=== PATIENT | female | born 1985 | race Hispanic/Latino ===

== ENCOUNTER 2022-08-13 12:17 | Emergency (ER) | payer OTHER, SELFPAY ==
[2022-08-13 12:24] VITALS: BP 123/63; PULSE 66; RESP 18; TEMP 36.6; O2SAT 100; BMI 31.8
--- NOTE | 2022-08-13 12:34 | DI.RAD.S_ITS ---
PROCEDURE: XR SHOULDER LT MIN 2V INDICATIONS: L shoulder pain TECHNIQUE: 3 views of the shoulder were acquired. COMPARISON: None. FINDINGS: Bones: No fractures or dislocations. No suspicious bony lesions. Visualized ribs appear intact. Soft tissues: No suspicious soft tissue calcifications. IMPRESSION: No fracture. No osseous lesion. If symptoms and/or clinical suspicion for pathology persists, further assessment with repeat radiographs (7-10 days) or advanced imaging (e.g. CT, MRI or bone scan) should be considered. Dictated by: Yamel Barrios MD, PhD on 08/13/2022 at 13:26 Approved by: Yamel Barrios MD, PhD on 08/13/2022 at 13:26
[2022-08-13 14:13] VITALS: BP 117/69; PULSE 66; O2SAT 99
--- NOTE | 2022-08-13 14:25 | ED.UPPEXIN ---
HPI - Extremity Injury (Upper) <Samara Jiménez PA-C - Last Filed: 08/13/22 14:40> General Chief Complaint: Extremity Injury, Upper Stated Complaint: Lt Shoulder Pain Time Seen by Provider: 08/13/22 12:39 Source: patient Mode of arrival: Ambulatory History of Present Illness HPI narrative: 36-year-old female with past medical history fibromyalgia presents to the ED with left-sided shoulder pain for 12 days. Patient denies any known trauma. Patient states that she has worsening pain when using her right arm and shoulder. The pain sometimes radiates down her left arm. Patient denies numbness, tingling, weakness. Patient's pain has been refractory to Celebrex which she takes for fibromyalgia. Patient denies chest pain, shortness of breath, nausea, vomiting. Related Data Allergies Allergy/AdvReac Type Severity Reaction Status Date / Time NSAIDS (Non-Steroidal AdvReac Unknown Verified 08/13/22 12:29 Anti-Inflamma Review of Systems <Samara Jiménez PA-C - Last Filed: 08/13/22 14:40> Review of Systems ROS Unobtainable: All systems reviewed & are unremarkable except as noted in HPI and below Constitutional Constitutional: Denies chills, Denies fatigue, Denies fever(s), Denies frequent falls, Denies lethargy and Denies weakness Eyes Eyes: Denies change in vision, Denies eye discharge, Denies irritation and Denies loss of vision ENT Ears, Nose, Mouth, and Throat: Denies change in voice, Denies dizziness, Denies neck pain, Denies sore throat and Denies throat swelling Cardiovascular Cardiovascular: Denies chest pain, Denies irregular heart rhythm, Denies lightheadedness, Denies palpitations, Denies dyspnea, Denies dyspnea on exertion and Denies orthopnea Respiratory Respiratory: Denies cough, Denies dyspnea, Denies dyspnea on exertion and Denies wheezing Gastrointestinal Gastrointestinal: Denies abdominal pain, Denies change in bowel habits, Denies diarrhea, Denies nausea and Denies vomiting Genitourinary Genitourinary: Denies hematuria, Denies flank pain, Denies urinary incontinence and Denies urinary urgency Musculoskeletal Musculoskeletal: Denies back pain, Denies muscle weakness, Denies neck pain, Denies numbness and Denies tingling Comments: Left shoulder pain Integumentary/Breasts Skin/Breast: Denies pruritus, Denies erythema, Denies rash and Denies wounds Neurologic Neurologic: Denies behavioral changes, Denies confusion, Denies dizziness, Denies frequent falls, Denies loss of vision, Denies numbness, Denies tingling and Denies weakness Psychiatric Psychiatric: Denies anxiety, Denies behavioral changes, Denies confusion, Denies depression, Denies homicidal ideation and Denies suicidal ideation Endocrine Endocrine: Denies fatigue, Denies flushing and Denies palpitations Hematologic/Lymphatic Hematologic/Lymphatic: Denies easy bruising Allergic/Immunologic Allergic/Immunologic: Denies urticaria, Denies throat swelling and Denies wheezing Patient History <Samara Jiménez PA-C - Last Filed: 08/13/22 14:40> Social History Smoking Status: Never smoker Smoking Status: Never smoker alcohol intake frequency: holidays/special occasions only Substance Use Type: does not use Exam <Samara Jiménez PA-C - Last Filed: 08/13/22 14:40> Narrative Exam Narrative: Const General:?cooperative, healthy appearing and comfortable [facility] Head:?normal to inspection Ears:?hearing grossly normal bilaterally Nose:?external nose normal Face and sinus:?normal facial exam and sinuses nontender Mouth:?oral mucosae normal Throat:?posterior oropharynx normal Eyes General:?appearance normal, both eyes and all related structures Neck Neck:?normal visual inspection and no lymphadenopathy noted Resp Effort & Inspection:?normal respiratory effort Auscultation:?clear to auscultation bilaterally Cardio Rate:?regular rate Rhythm:?regular rhythm Musculoskeletal There is some tenderness to palpation of anterior left shoulder. Skin is intact, no rashes. No deformitites. There is full range of motion. Strength and sensation is intact. Patient is neurovascularly intact. Neuro General:?patient alert, patient awake and patient oriented x3 Initial Vital Signs Initial Vital Signs: Vital Signs Temperature 97.9 F 08/13/22 12:24 Pulse Rate 66 08/13/22 12:24 Respiratory Rate 18 08/13/22 12:24 Blood Pressure 123/63 08/13/22 12:24 Pulse Oximetry 100 08/13/22 12:24 Oxygen Delivery Method Room Air 08/13/22 12:24 <Deyvi Enriquez DO - Last Filed: 08/14/22 07:52> Initial Vital Signs Initial Vital Signs: Vital Signs Temperature 97.9 F 08/13/22 12:24 Pulse Rate 66 08/13/22 12:24 Respiratory Rate 18 08/13/22 12:24 Blood Pressure 123/63 08/13/22 12:24 Pulse Oximetry 100 08/13/22 12:24 Oxygen Delivery Method Room Air 08/13/22 12:24 Course <Samara Jiménez PA-C - Last Filed: 08/13/22 14:40> Orders Ordered: ED Orders 08/13/22 12:34 XR shoulder LT min 2V Stat EKG-12 Lead Stat Vital Signs Vital signs: Vital Signs - 8 hr 08/13/22 12:24 08/13/22 14:13 Temperature 97.9 F Pulse Rate 66 66 Respiratory Rate 18 Blood Pressure 123/63 117/69 Pulse Oximetry 100 99 Oxygen Delivery Method Room Air Room Air <DO Sarah Montgomery Last Filed: 08/14/22 07:52> Orders Ordered: ED Orders 08/13/22 12:34 XR shoulder LT min 2V Stat EKG-12 Lead Stat Vital Signs Vital signs: Vital Signs - 8 hr 08/13/22 12:24 08/13/22 14:13 Temperature 97.9 F Pulse Rate 66 66 Respiratory Rate 18 Blood Pressure 123/63 117/69 Pulse Oximetry 100 99 Oxygen Delivery Method Room Air Room Air MDM - Extremity Injury (Upper) <ELSY Humphreys Last Filed: 08/13/22 14:40> MDM Narrative Medical decision making narrative: 36-year-old female with past medical history fibromyalgia presents to the ED with left-sided shoulder pain for 12 days. Concern for fracture/dislocation versus musculoskeletal sprain/strain. An EKG was also obtained which showed sinus bradycardia at 56, no acute ST-T changes, no axis deviation. Physical exam was reassuring for full range of motion. Patient's symptoms likely due to musculoskeletal sprain/strain versus rotator cuff versus biceps tendinitis. Patient agrees to follow-up with her PCP and physical therapy for further evaluation. Recommend heat, Tylenol in addition to Celebrex for the pain. ED return precautions were discussed with patient. Patient verbalized understanding. Discharge Plan Departure Patient Disposition: Home Clinical Impression: Left shoulder pain Instructions: DI for Shoulder Sprain Activity Restrictions/Additional Instructions: You were evaluated in the ED today for left-sided shoulder pain. Your x-ray did not show any fractures or dislocation. Your physical exam was reassuring for good range of motion. Your symptoms are likely due to a musculoskeletal sprain/strain. Please follow-up with your PCP as soon as possible as well as physical therapy. You may apply heat to the area of the injury. You may also take Tylenol in addition to the Celebrex that you already take for the fibromyalgia. Return to the ED if your symptoms worsen, you experience chest pain, shortness of breath. Referrals: Kayla Zaman PA-C [Primary Care Provider] - Stand Alone Forms: Patient Portal/API <Deyvi Enriquez DO - Last Filed: 08/14/22 07:52> Cosign ED Attending Cosbriannaature Attestation: I was immediately available in the department for consultation. This documentation has been reviewed and I agree with assessment and plan. Supervised by Deyvi Enriquez DO
== END 2022-08-13 14:38 | disposition home or self-care (01) ==
PROVIDERS: Emergency Provider Student in an Organized Health Care Education/Training Program; PCP Physician Assistant
DX: M25.512 Pain in left shoulder (principal); R07.9 Chest pain, unspecified
CPT/HCPCS: 73030; 93005; 99283; 99284

== ENCOUNTER 2022-09-10 13:13 | Emergency (ER) | payer OTHER, SELFPAY ==
[2022-09-10 13:23] VITALS: BP 152/90; PULSE 67; RESP 18; TEMP 37; O2SAT 99; BMI 31.8
[2022-09-10 14:38] LABS: Add Manual Diff / Slide Review NO; Basophils Absolute Auto 100 /uL (0-100); Eosinophils Absolute Auto 100 /uL (0-450); Eosinophils Percent Auto 1.2 % (2-4); Hematocrit 38.4 % (36-46); Hemoglobin 13.6 g/dL (12.0-16.0); Lymphocytes Absolute Auto 1700 /uL (1100-4500); Lymphocytes Percent Auto 25.9 % (25-40); Mean Corpuscular HGB Conc 35.3 % (30-36); Mean Corpuscular Hemoglobin 30.7 PG (26-34); Mean Corpuscular Volume 86.9 fL (80-100); Monocytes Absolute Auto 400 /uL (0-900); Neutrophils Absolute Auto 4400 /uL (1500-7000); Neutrophils Percent Auto 65.9 % (50-75); Platelet Count 282 X10^3/uL (150-400); Red Blood Cell Count 4.42 X10^6/uL (4.0-5.2); White Blood Cell Count 6.7 X10^3/uL (4.5-11.0)
[2022-09-10 14:47] LABS: Pregnancy Test Urine Negative (Negative)
[2022-09-10 14:49] LABS: BUN Creatinine Ratio 12.3 (6-22); Blood Urea Nitrogen 10 mg/dL (7-17); Calcium 9.1 mg/dL (8.4-10.2); Carbon Dioxide 28 mmol/L (22-32); Chloride 103 mmol/L (98-107); Estimated Glomerular Filt Rate > 60 mL/min (>60); Glucose 84 mg/dL (70-100); HEMOLYSIS < 15 (0-50); Potassium 3.8 mmol/L (3.4-5.1); Sodium 139 mmol/L (137-145)
[2022-09-10 15:02] LABS: Bacteria Urine Occasional (0-1); Culture Indicated Urine Cult Not Indicated; RBC Urine 10-30/HPF (0-5/HPF); Squamous Epithelial Cell Urine None Seen (0-5/HPF); WBC Urine 0-1/HPF (0-5/HPF)
[2022-09-10 16:26] VITALS: BP 141/70; PULSE 66; O2SAT 100
[2022-09-10 16:30] VITALS: BP 126/65; PULSE 60; O2SAT 100
[2022-09-10 17:00] VITALS: BP 129/79; PULSE 66; O2SAT 100
[2022-09-10 17:08] LABS: INR 1.2 (0.9-1.3); Prothrombin Time 14.1 SECONDS (10.1-12.7)
[2022-09-10 17:10] LABS: PTT Partial Thromboplastin Tim 28 SECONDS (26-36)
--- NOTE | 2022-09-10 18:28 | ED.FEMALEGU ---
HPI - Female Genitourinary <Samara Jiménez PA-C - Last Filed: 09/10/22 18:36> General Chief complaint: Vaginal Bleeding Stated complaint: sent by SILVIA Johnson heaving bleeding/lost weight RT le Time Seen by Provider: 09/10/22 16:28 Source: patient Mode of arrival: Ambulatory History of Present Illness HPI Narrative: 36-year-old female with past medical history fibromyalgia, endometriosis presents to the ED with 2 days of heavy menstrual bleeding. Patient states that her periods started yesterday, she has been changing tampons about every 1/2 hour to 1 hour. Patient states that she usually changes tampons about every 1-1-1/2 hours, endorses that she has normally heavier periods. Patient is not on any exogenous hormones. Patient denies abdominal cramping, endorses lower back pain along with the bleeding. Patient denies chest pain, shortness of breath, nausea, vomiting, dysuria, lightheadedness, dizziness, syncope. Related Data Previous Rx's Medication Instructions Recorded medroxyprogesterone 10 mg tablet See Rx Instructions .Route 09/10/22 .COMPLEX #42 tabs Allergies Allergy/AdvReac Type Severity Reaction Status Date / Time NSAIDS (Non-Steroidal AdvReac Unknown Verified 09/10/22 13:28 Anti-Inflamma Review of Systems <Samara Jiménez PA-C - Last Filed: 09/10/22 18:36> Review of Systems ROS Unobtainable: All systems reviewed & are unremarkable except as noted in HPI and below Constitutional Constitutional: Denies chills, Denies fatigue, Denies fever(s), Denies frequent falls, Denies lethargy and Denies weakness Eyes Eyes: Denies change in vision, Denies eye discharge, Denies irritation and Denies loss of vision ENT Ears, Nose, Mouth, and Throat: Denies change in voice, Denies dizziness, Denies neck pain, Denies sore throat and Denies throat swelling Cardiovascular Cardiovascular: Denies chest pain, Denies irregular heart rhythm, Denies lightheadedness, Denies palpitations, Denies dyspnea, Denies dyspnea on exertion and Denies orthopnea Respiratory Respiratory: Denies cough, Denies dyspnea, Denies dyspnea on exertion and Denies wheezing Gastrointestinal Gastrointestinal: Denies abdominal pain, Denies change in bowel habits, Denies diarrhea, Denies nausea and Denies vomiting Genitourinary Genitourinary: Reports abnormal menses, Denies hematuria, Denies flank pain, Denies urinary incontinence and Denies urinary urgency Musculoskeletal Musculoskeletal: Denies back pain, Denies muscle weakness, Denies neck pain, Denies numbness and Denies tingling Integumentary/Breasts Skin/Breast: Denies pruritus, Denies erythema, Denies rash and Denies wounds Neurologic Neurologic: Denies behavioral changes, Denies confusion, Denies dizziness, Denies frequent falls, Denies loss of vision, Denies numbness, Denies tingling and Denies weakness Psychiatric Psychiatric: Denies anxiety, Denies behavioral changes, Denies confusion, Denies depression, Denies homicidal ideation and Denies suicidal ideation Endocrine Endocrine: Denies fatigue, Denies flushing and Denies palpitations Hematologic/Lymphatic Hematologic/Lymphatic: Denies easy bruising Allergic/Immunologic Allergic/Immunologic: Denies urticaria, Denies throat swelling and Denies wheezing Patient History <Samara Jiménez PA-C - Last Filed: 09/10/22 18:36> alcohol intake frequency: holidays/special occasions only Substance Use Type: does not use Exam <ELSY Humphreys Last Filed: 09/10/22 18:36> Narrative Exam Narrative: Const General:?cooperative, healthy appearing and comfortable [facility] Head:?normal to inspection Ears:?hearing grossly normal bilaterally Nose:?external nose normal Face and sinus:?normal facial exam and sinuses nontender Mouth:?oral mucosae normal Throat:?posterior oropharynx normal Eyes General:?appearance normal, both eyes and all related structures Neck Neck:?normal visual inspection and no lymphadenopathy noted Resp Effort & Inspection:?normal respiratory effort Auscultation:?clear to auscultation bilaterally Cardio Rate:?regular rate Rhythm:?regular rhythm GI Abdomen is soft, nondistended, mildly tender to palpation. No CVA tenderness. Neuro General:?patient alert, patient awake and patient oriented x3 Initial Vital Signs Initial Vital Signs: Vital Signs Temperature 98.6 F 09/10/22 13:23 Pulse Rate 67 09/10/22 13:23 Respiratory Rate 18 09/10/22 13:23 Blood Pressure 152/90 H 09/10/22 13:23 Pulse Oximetry 99 09/10/22 13:23 Oxygen Delivery Method Room Air 09/10/22 13:23 <Kylee Isbell DO - Last Filed: 09/13/22 05:49> Initial Vital Signs Initial Vital Signs: Vital Signs Temperature 98.6 F 09/10/22 13:23 Pulse Rate 67 09/10/22 13:23 Respiratory Rate 18 09/10/22 13:23 Blood Pressure 152/90 H 09/10/22 13:23 Pulse Oximetry 99 09/10/22 13:23 Oxygen Delivery Method Room Air 09/10/22 13:23 Course <Samara Jiménez PA-C - Last Filed: 09/10/22 18:36> Orders Ordered: ED Orders 09/10/22 14:15 Basic Metabolic Panel Stat Complete Blood Count AUTO DIFF Stat PT [Prothrombin Time INR] Stat PTT Partial Thromboplastin Pa Stat Test Urine Stat 09/10/22 14:20 Urine Microscopic Stat Vital Signs Vital signs: Vital Signs - 8 hr 09/10/22 13:23 09/10/22 16:26 09/10/22 16:26 Temperature 98.6 F Pulse Rate 67 66 Respiratory Rate 18 Blood Pressure 152/90 H 141/70 H Pulse Oximetry 99 100 Oxygen Delivery Method Room Air 09/10/22 16:30 09/10/22 16:30 09/10/22 17:00 Temperature Pulse Rate 60 Respiratory Rate Blood Pressure 126/65 129/79 Pulse Oximetry 100 Oxygen Delivery Method Room Air 09/10/22 17:00 Temperature Pulse Rate 66 Respiratory Rate Blood Pressure Pulse Oximetry 100 Oxygen Delivery Method <DO Sarah Mario Last Filed: 09/13/22 05:49> Orders Ordered: ED Orders 09/10/22 14:15 Basic Metabolic Panel Stat Complete Blood Count AUTO DIFF Stat PT [Prothrombin Time INR] Stat PTT Partial Thromboplastin Pa Stat Test Urine Stat 09/10/22 14:20 Urine Microscopic Stat Vital Signs Vital signs: Vital Signs - 8 hr 09/10/22 13:23 09/10/22 16:26 09/10/22 16:26 Temperature 98.6 F Pulse Rate 67 66 Respiratory Rate 18 Blood Pressure 152/90 H 141/70 H Pulse Oximetry 99 100 Oxygen Delivery Method Room Air 09/10/22 16:30 09/10/22 16:30 09/10/22 17:00 Temperature Pulse Rate 60 Respiratory Rate Blood Pressure 126/65 129/79 Pulse Oximetry 100 Oxygen Delivery Method Room Air 09/10/22 17:00 Temperature Pulse Rate 66 Respiratory Rate Blood Pressure Pulse Oximetry 100 Oxygen Delivery Method MDM - Female Genitourinary <Samara Jiménez PA-C - Last Filed: 09/10/22 18:36> Lab Data 09/10/22 14:15 09/10/22 14:15 Labs: Lab Results 09/10/22 09/10/22 09/10/22 Range/Units 14:15 14:15 14:15 WBC 6.7 (4.5-11.0) X10^3/uL RBC 4.42 (4.0-5.2) X10^6/uL Hgb 13.6 (12.0-16.0) g/dL Hct 38.4 (36-46) % MCV 86.9 (80-100) fL MCH 30.7 (26-34) PG MCHC 35.3 (30-36) % RDW 13.0 (11.6-14.8) % Plt Count 282 (150-400) X10^3/uL Neut % (Auto) 65.9 (50-75) % Lymph % (Auto) 25.9 (25-40) % [place] % (Auto) 6.0 (3-14) % Eos % (Auto) 1.2 L (2-4) % Baso % (Auto) 1.0 (0-2) % Neut # (Auto) 4400 (4296-6477) /uL Lymph # (Auto) 1700 (4149-4979) /uL [place] # (Auto) 400 (0-900) /uL Eos # (Auto) 100 (0-450) /uL Baso # (Auto) 100 (0-100) /uL PT (10.1-12.7) SECONDS INR (0.9-1.3) APTT (26-36) SECONDS Sodium 139 (137-145) mmol/L Potassium 3.8 (3.4-5.1) mmol/L Chloride 103 (98-107) mmol/L Carbon Dioxide 28 (22-32) mmol/L BUN 10 (7-17) mg/dL Creatinine 0.81 (0.52-1.04) mg/dL Estimated GFR > 60 (>60) mL/min BUN/Creatinine Ratio 12.3 (6-22) Glucose 84 (70-100) mg/dL Calcium 9.1 (8.4-10.2) mg/dL Urine RBC (0-5/HPF) Urine WBC (0-5/HPF) Ur Squamous Epith Cells (0-5/HPF) Urine Bacteria (None) Ur Culture Indicated? Urine Test Negative (Negative) 09/10/22 09/10/22 Range/Units 14:15 14:20 WBC (4.5-11.0) X10^3/uL RBC (4.0-5.2) X10^6/uL Hgb (12.0-16.0) g/dL Hct (36-46) % MCV (80-100) fL MCH (26-34) PG MCHC (30-36) % RDW (11.6-14.8) % Plt Count (150-400) X10^3/uL Neut % (Auto) (50-75) % Lymph % (Auto) (25-40) % [place] % (Auto) (3-14) % Eos % (Auto) (2-4) % Baso % (Auto) (0-2) % Neut # (Auto) (6837-6180) /uL Lymph # (Auto) (5894-0279) /uL [place] # (Auto) (0-900) /uL Eos # (Auto) (0-450) /uL Baso # (Auto) (0-100) /uL PT 14.1 H (10.1-12.7) SECONDS INR 1.2 (0.9-1.3) APTT 28 (26-36) SECONDS Sodium (137-145) mmol/L Potassium (3.4-5.1) mmol/L Chloride (98-107) mmol/L Carbon Dioxide (22-32) mmol/L BUN (7-17) mg/dL Creatinine (0.52-1.04) mg/dL Estimated GFR (>60) mL/min BUN/Creatinine Ratio (6-22) Glucose (70-100) mg/dL Calcium (8.4-10.2) mg/dL Urine RBC 10-30/hpf H (0-5/HPF) Urine WBC 0-1/hpf (0-5/HPF) Ur Squamous Epith Cells None seen (0-5/HPF) Urine Bacteria Occasional (0-1) (None) Ur Culture Indicated? Cult not indicated Urine Test (Negative) MDM Narrative Medical decision making narrative: 36-year-old female with past medical history fibromyalgia, endometriosis presents to the ED with 2 days of heavy menstrual bleeding. Concern for dysfunctional uterine bleeding versus anemia versus versus threatened miscarriage versus other. Will obtain labs, UA, urine hCG. Will reassess. H&H was stable at 13.6 over 38.4. Labs within normal limits. UA without UTI. Urine hCG negative. Discussed findings with patient, discussed starting a course of medroxyprogesterone to stem the bleeding. Patient would like a prescription for the medroxyprogesterone and will think it over before she starts taking it. Patient also agrees to follow-up with the maple products maker as soon as possible for further evaluation. ED return precautions were discussed with patient regarding increased or prolonged bleeding, shortness of breath. Patient verbalized understanding. Medical records reviewed: Yes <Kylee Isbell DO - Last Filed: 09/13/22 05:49> Lab Data Labs: Lab Results 09/10/22 09/10/22 09/10/22 Range/Units 14:15 14:15 14:15 WBC 6.7 (4.5-11.0) X10^3/uL RBC 4.42 (4.0-5.2) X10^6/uL Hgb 13.6 (12.0-16.0) g/dL Hct 38.4 (36-46) % MCV 86.9 (80-100) fL MCH 30.7 (26-34) PG MCHC 35.3 (30-36) % RDW 13.0 (11.6-14.8) % Plt Count 282 (150-400) X10^3/uL Neut % (Auto) 65.9 (50-75) % Lymph % (Auto) 25.9 (25-40) % [place] % (Auto) 6.0 (3-14) % Eos % (Auto) 1.2 L (2-4) % Baso % (Auto) 1.0 (0-2) % Neut # (Auto) 4400 (1316-3696) /uL Lymph # (Auto) 1700 (4028-8566) /uL [place] # (Auto) 400 (0-900) /uL Eos # (Auto) 100 (0-450) /uL Baso # (Auto) 100 (0-100) /uL PT (10.1-12.7) SECONDS INR (0.9-1.3) APTT (26-36) SECONDS Sodium 139 (137-145) mmol/L Potassium 3.8 (3.4-5.1) mmol/L Chloride 103 (98-107) mmol/L Carbon Dioxide 28 (22-32) mmol/L BUN 10 (7-17) mg/dL Creatinine 0.81 (0.52-1.04) mg/dL Estimated GFR > 60 (>60) mL/min BUN/Creatinine Ratio 12.3 (6-22) Glucose 84 (70-100) mg/dL Calcium 9.1 (8.4-10.2) mg/dL Urine RBC (0-5/HPF) Urine WBC (0-5/HPF) Ur Squamous Epith Cells (0-5/HPF) Urine Bacteria (None) Ur Culture Indicated? Urine Test Negative (Negative) 09/10/22 09/10/22 Range/Units 14:15 14:20 WBC (4.5-11.0) X10^3/uL RBC (4.0-5.2) X10^6/uL Hgb (12.0-16.0) g/dL Hct (36-46) % MCV (80-100) fL MCH (26-34) PG MCHC (30-36) % RDW (11.6-14.8) % Plt Count (150-400) X10^3/uL Neut % (Auto) (50-75) % Lymph % (Auto) (25-40) % [place] % (Auto) (3-14) % Eos % (Auto) (2-4) % Baso % (Auto) (0-2) % Neut # (Auto) (3227-6009) /uL Lymph # (Auto) (1858-6334) /uL [place] # (Auto) (0-900) /uL Eos # (Auto) (0-450) /uL Baso # (Auto) (0-100) /uL PT 14.1 H (10.1-12.7) SECONDS INR 1.2 (0.9-1.3) APTT 28 (26-36) SECONDS Sodium (137-145) mmol/L Potassium (3.4-5.1) mmol/L Chloride (98-107) mmol/L Carbon Dioxide (22-32) mmol/L BUN (7-17) mg/dL Creatinine (0.52-1.04) mg/dL Estimated GFR (>60) mL/min BUN/Creatinine Ratio (6-22) Glucose (70-100) mg/dL Calcium (8.4-10.2) mg/dL Urine RBC 10-30/hpf H (0-5/HPF) Urine WBC 0-1/hpf (0-5/HPF) Ur Squamous Epith Cells None seen (0-5/HPF) Urine Bacteria Occasional (0-1) (None) Ur Culture Indicated? Cult not indicated Urine Test (Negative) Discharge Plan Departure Patient Disposition: Home Clinical Impression: Dysfunctional uterine bleeding Instructions: DI for Vaginal Bleeding Activity Restrictions/Additional Instructions: You were evaluated in the ED today for heavy vaginal bleeding during your periods. Your labs and urine were normal. You are being prescribed medroxyprogesterone to control the bleeding. You may also take ibuprofen 800 mg 3 times a day for pelvic cramping as well as reducing the bleeding. Please follow-up your maple products maker as soon as possible for further evaluation. Return to the ED if your symptoms worsen, you have trouble breathing. Prescriptions: New medroxyprogesterone 10 mg tablet See Rx Instructions .ROUTE .COMPLEX Qty: 42 0RF Rx Instructions: 10 mg orally Q8h for 7 days. Then 10 mg orally daily x3 weeks Referrals: Kayla Zaman PA-C [Primary Care Provider] - Stand Alone Forms: Patient Portal/API <Kylee Isbell DO - Last Filed: 09/13/22 05:49> Cosign ED Attending Yan Attestation: I was immediately available in the department for consultation. Documentation has been reviewed.
== END 2022-09-10 17:48 | disposition home or self-care (01) ==
PROVIDERS: Emergency Medicine; Emergency Provider Student in an Organized Health Care Education/Training Program; PCP Physician Assistant
DX: N93.8 Other specified abnormal uterine and vaginal bleeding (principal)
CPT/HCPCS: 36415; 80048; 81015; 81025; 85025; 85610; 85730; 99283

== ENCOUNTER → 2024-09-07 06:59 | Outpatient (CLI) | payer OTHER, SELFPAY ==
--- NOTE | 2024-09-07 07:01 | DI.MRI.S_ITS ---
PROCEDURE: MR SHOULDER RT WO CON INDICATIONS: chronic rt shoulder pain TECHNIQUE: Noncontrast oblique coronal T2 fast spin echo with fat saturation, oblique sagittal T1 spin echo and T2 fast spin echo with fat saturation, axial T1 spin echo and T2 fast spin echo with fat saturation through the shoulder. COMPARISON: None. FINDINGS: Image quality: Excellent. Rotator cuff: There is low-grade, bursal sided tear at the critical zone of the junction of the supraspinatus and infraspinatus (13:10). The teres minor is unremarkable. The subscapularis is unremarkable. No muscle edema or fatty atrophy. Bones and bursae: Mild degenerative changes of the acromioclavicular joint with capsular hypertrophy. Type 1 acromion. No os acromiale. Mild subacromial/subdeltoid bursitis. Mild subchondral cystic changes at the posterior greater tuberosity, reactive. No acute fracture. No focal chondral defect of the glenohumeral articulation. Capsule and soft tissues: Superior labral tear, extending anteriorly to the anterior superior labrum. No paralabral cyst. Mild tenosynovitis of the extra-articular biceps tendon. The intra-articular biceps tendon is unremarkable. Trace glenohumeral effusion. No intra-articular body. Multiple small right axillary lymph node. IMPRESSION: 1. Mild degenerative changes of acromioclavicular joint with mild subacromial/subdeltoid bursitis. 2. Low-grade tear at the junction of the supraspinatus and infraspinatus. 3. Labral tear. 4. Mild tenosynovitis of the extra-articular biceps tendon. Dictated by: Kenisha Jones M.D. on 09/07/2024 at 10:17 Approved by: Kenisha Jones M.D. on 09/07/2024 at 10:26
== END ==
LOC: MRI 07:01
PROVIDERS: PCP Nurse Practitioner Family; Referring Provider Nurse Practitioner Family; Visit Provider Nurse Practitioner Family
DX: M75.111 Incomplete rotator cuff tear or rupture of right shoulder, not specified as traumatic (principal); M75.51 Bursitis of right shoulder; S43.491A Other sprain of right shoulder joint, initial encounter; M65.921 Unspecified synovitis and tenosynovitis, right upper arm; M25.511 Pain in right shoulder
CPT/HCPCS: 73221

== ENCOUNTER 2024-09-29 19:59 | Emergency (ER) | payer OTHER, SELFPAY ==
[2024-09-29 20:11] VITALS: BP 135/83; PULSE 76; RESP 16; TEMP 36.9; O2SAT 99; BMI 32.8
--- NOTE | 2024-09-29 20:24 | PC.NURSE ---
Pt reports assumed insect bite while out at dinner at an outside table. Red/swollen area to left cheek. Saline/gauze used to remove makeup to see area better. Borders marked to monitor.
--- NOTE | 2024-09-29 20:39 | ED.SKABFB ---
HPI - Skin/Abscess/Foreign Bdy General Chief complaint: Skin/Abscess/Foreign Body Stated complaint: INSECT BITE LT CHEEK, THROBBING Time Seen by Provider: 09/29/24 20:39 Source: patient Mode of arrival: Ambulatory Limitations: no limitations History of Present Illness HPI narrative: 39-year-old female without any significant past medical history comes into the ED from home for evaluation of possible bug/insect bite she states that she thinks some sort of bug may have bit her on her left cheek today, noticed it at around 5:00 p.m., had noticed some redness swelling and increased pain therefore decided come into the ED for further evaluation treatment. At time of evaluation patient protecting airway no voice changes no stridor no trismus, it is not affecting any mucosal membranes. She is tolerating secretions. She has no known allergies to anything. Denies any other symptoms at this time. Related Data Previous Rx's Medication Instructions Recorded medroxyprogesterone 10 mg tablet See Rx Instructions .Route 09/10/22 .COMPLEX #42 tabs cephalexin 500 mg capsule 500 mg PO Q6H 1 week #28 caps 09/29/24 cephalexin 500 mg capsule 500 mg PO TID 7 days #21 caps 09/29/24 Allergies Allergy/AdvReac Type Severity Reaction Status Date / Time NSAIDS (Non-Steroidal AdvReac Unknown Verified 09/10/22 13:28 Anti-Inflamma Review of Systems Review of Systems Narrative: General: Denies fever, chills, weight loss HEENT: Denies headache, eye drainage, eye irritation, head trauma, sore throat, voice change Cardiovascular: Denies any chest pain, palpitations, tachycardia Respiratory: Denies any shortness of breath, cough, wheeze, stridor GI/: Denies any abdominal pain, nausea, vomiting, diarrhea, bright red blood per rectum, melanotic stools, urinary frequency, urinary retention, dysuria, hematuria MSK: Denies any joint pain, muscle pains, swelling Skin: Possible bug bite toe left cheek Neuro: Denies any headache, lightheadedness, dizziness, fainting, weakness Psych: Denies SI/HI Patient History Smoking Status: Never smoker alcohol intake frequency: holidays/special occasions only Exam Narrative Exam Narrative: General: Cooperative, well-developed, not in acute distress HEENT: Normocephalic, atraumatic, PERRLA, normal sclera, eyelids normal Neck: Active full range of motion, atraumatic Chest: Normal to inspection, negative crepitus, no overlying erythema ecchymosis Respiratory: Normal respiratory effort, not in acute respiratory distress, clear to auscultation bilaterally negative cough, wheeze, tachypnea, rhonchi, rales Cardiology: Regular rate rhythm negative gallop, murmur, rubs GI/: No tenderness to palpation, soft, non rigid, normal to inspection, exam deferred MSK: Full active range of motion in all 4 extremities, atraumatic, no tenderness to palpation of any bony prominences Skin: Patient with indurated erythematous area of the left cheek, there is no crepitus no streaking does not affect the conjunctiva. Neuro: Alert awake oriented x3, moves all 4 extremities spontaneously, cranial nerves intact, able to answer all questions appropriately follows commands appropriately Psych: Cooperative, negative suicidal or homicidal ideations Initial Vital Signs Initial Vital Signs: Vital Signs Temperature 98.5 F 09/29/24 20:11 Pulse Rate 76 09/29/24 20:11 Respiratory Rate 16 09/29/24 20:11 Blood Pressure 135/83 09/29/24 20:11 Pulse Oximetry 99 09/29/24 20:11 Oxygen Delivery Method Room Air 09/29/24 20:11 Course Vital Signs Vital signs: Vital Signs - 8 hr 09/29/24 20:11 Temperature 98.5 F Pulse Rate 76 Respiratory Rate 16 Blood Pressure 135/83 Pulse Oximetry 99 Oxygen Delivery Method Room Air MDM - Skin/Abscess/Foreign Bdy Differential Diagnosis Differential diagnosis: Likely abscess of skin or subcutaneous tissue and other (Bug bite, allergic reaction, cellulitis) MDM Narrative Medical decision making narrative: 39-year-old female with a past medical history of fibromyalgia, comes into the ED from home for evaluation of redness to the left cheek, she states that around 1700 today she noticed some pain to her left cheek noticed that she might have gotten bit by something, states that it started throbbing gotten red this for decided come into the ED for further evaluation treatment. On exam indurated erythematous area of the left cheek no streaking no fluctuance, no crepitus, not affecting the conjunctiva of the left eye, patient is speaking in full sentences protecting airway, we will treat patient for cellulitis, patient is speaking in full sentences protecting airway no voice changes no stridor no trismus she was given strict return precautions she verbalized understanding of this and agrees to being discharged home with outpatient follow up Discharge Plan Departure Patient Disposition: Home Clinical Impression: Cellulitis Instructions: DI for Cellulitis -- Adult Activity Restrictions/Additional Instructions: Please follow up with your primary care doctor Please read the discharge instructions sheet carefully and bring all papers to all doctor follow-up visits, as it may contain information that your doctor may want to see. Disease processes change and evolve, if your symptoms worsen or if you develop any new symptoms that are concerning to you please return for evaluation. Your evaluation today does not show any evidence of any life-threatening/serious illnesses requiring admission to the hospital or surgery. Please follow-up with your doctor for re-evaluation in approximately 1 day. Seek immediate medical attention for any worrisome symptoms. *If you do not have a primary care provider please contact the [facility] Resource line at [phone]. They will ask some questions about your medical history and help get you set up with a doctor in the community. Prescriptions: New cephalexin 500 mg capsule 500 mg PO TID 7 Days Qty: 21 0RF cephalexin 500 mg capsule 500 mg PO Q6H 7 Days Qty: 28 0RF No Action medroxyprogesterone 10 mg tablet See Rx Instructions .ROUTE .COMPLEX Qty: 42 0RF Rx Instructions: 10 mg orally Q8h for 7 days. Then 10 mg orally daily x3 weeks Referrals: Kirsty Harris FNP-C [Primary Care Provider] - Stand Alone Forms: Patient Portal/API/Survey
[2024-09-29] MEDS: cephALEXin 250 MG CAPSULE 500 MG PO (20:50)
== END 2024-09-29 20:55 | disposition home or self-care (01) ==
PROVIDERS: Emergency Provider Student in an Organized Health Care Education/Training Program; PCP Nurse Practitioner Family
DX: L03.211 Cellulitis of face (principal)
CPT/HCPCS: 99283

== ENCOUNTER → 2024-11-24 10:55 | Outpatient (CLI) | payer OTHER, SELFPAY ==
--- NOTE | 2024-11-24 10:56 | DI.RAD.S_ITS ---
PROCEDURE: FL JOINT INJECTION LARGE RT INDICATIONS: pain of right shoulder COMPARISON: [facility], MR, MR SHOULDER RT WO CON, 09/07/2024, 7:11. TECHNIQUE: The indications, alternatives, benefits, risks, and complications of the procedure were explained to the patient. Written informed consent was obtained and placed in the chart. The patient was placed in an appropriate position on the fluoroscopy table, and a site was chosen for percutaneous access under fluoroscopic guidance. The site was prepped and draped in a sterile fashion. Local anesthetic was administered using a 1% lidocaine solution. A hypodermic or spinal needle was then used to access the symptomatic joint. Intra-articular location of the needle tip was confirmed by injecting a small amount of contrast, followed by steroid administration. The needle was then withdrawn, and a bandage applied to the puncture site. FINDINGS: Joint injected: Right glenohumeral joint Medications injected: 4 mL of 40 mg/mL Kenalog and 0.5% Ropivacaine mixture. Patient's pain before injection: 3 out of 10. Patient's pain after injection: 0 out of 10. Complications: None. IMPRESSION: Successful fluoroscopically guided administration of steroid and anaesthetic solution into the right shoulder joint. Dictated by: Pritesh Garrido M.D. on 11/24/2024 at 12:22 Approved by: Pritesh Garrido M.D. on 11/24/2024 at 12:23
[2024-11-24] MEDS: LIDOCAINE 1% 20 ML INJ (14:58)
[2024-11-24] MEDS: ROPIVACAINE 0.5% PF 5 MG/ML 20ML VIAL 20 ML INJ (14:59)
[2024-11-24] MEDS: TRIAMCINOLONE 40 MG/ML VIAL INTRA-ARTI (15:00)
== END ==
LOC: RAD 10:56
PROVIDERS: PCP Nurse Practitioner Family
DX: M25.511 Pain in right shoulder (principal)
CPT/HCPCS: 20610; 77002; Q9967

== ENCOUNTER 2025-01-30 10:17 | Emergency (ER) | payer OTHER, SELFPAY ==
[2025-01-30 10:22] VITALS: BP 139/81; PULSE 71; RESP 18; TEMP 36.8; O2SAT 100; BMI 31.8
--- NOTE | 2025-01-30 10:57 | ED_ITS ---
HPI - Skin/Abscess/Foreign Bdy General Chief complaint: Skin/Abscess/Foreign Body Stated complaint: RT foot swollen, sores, inflamed after tx ointment Time Seen by Provider: 01/30/25 10:56 History of Present Illness HPI narrative: Patient is a 39-year-old female history of fibromyalgia presenting today with ongoing athlete's foot. She says that she saw her PCM was diagnosed with athlete's foot she has been taking [id number] terbinafine for about 10 days feels like it is getting worse. Her right foot is worse than her left but. A right foot is swollen there is no redness there is no fever. She now has some sores on her hands better minimally visible as well. No significant vesicles. Related Data Previous Rx's ?Medication ?Instructions ?Recorded medroxyprogesterone 10 mg tablet See Rx Instructions . Route 09/10/22 .COMPLEX #42 tabs clotrimazole 1 % topical ointment 1 applic topical BID 4 weeks #56.7 01/30/25 grams Allergies Allergy/AdvReac Type Severity Reaction Status Date / Time NSAIDS (Non-Steroidal AdvReac Unknown Verified 11/24/24 12:07 Anti-Inflamma Patient History Smoking Status: Never smoker alcohol intake frequency: holidays/special occasions only Exam Initial Vital Signs Initial Vital Signs: Vital Signs Temperature 98.2 F 01/30/25 10:22 Pulse Rate 71 01/30/25 10:22 Respiratory Rate 18 01/30/25 10:22 Blood Pressure 139/81 01/30/25 10:22 Pulse Oximetry 100 01/30/25 10:22 Oxygen Delivery Method Room Air 01/30/25 10:22 GENERAL: Well-appearing, well-nourished and in no acute distress. CARDIOVASCULAR: peripheral pulses in tact, cap refill <2 sec RESPIRATORY: No respiratory distress, speaks in full sentences without difficulty EXTREMITIES: Normal range of motion, no clubbing or edema. Neurovascularly intact NEUROLOGICAL: Cranial nerves II through XII grossly intact. Normal gait and speech. SKIN: Right foot is swollen the blisters no vesicles it is not dry or flaky there is no erythema plantar foot there are lesions between the toes. Left foot no real lesions no vesicles no blisters not as swollen Hands on index finger no vesicles no lesions little bit of swelling she notices it more my C no erythema Course Vital Signs Vital signs: Vital Signs - 8 hr 01/30/25 10:22 Temperature 98.2 F Pulse Rate 71 Respiratory Rate 18 Blood Pressure 139/81 Pulse Oximetry 100 Oxygen Delivery Method Room Air MDM - Skin/Abscess/Foreign Bdy MDM Narrative Medical decision making narrative: Patient 39-year-old female diagnosed with tinea pedis has been on [id number] medication no real improvement after 10 days. Feels like it is getting worse. I see no concurrent cellulitis I do not see any erythrasma. She already has a referral to Dermatology, it just has not gone through yet. We will change up medication see if it helps. Discussed warning signs about when to return to ED. Discharge Plan Departure Patient Disposition: Home Clinical Impression: Tinea pedis Instructions: Athlete's Foot Activity Restrictions/Additional Instructions: *You have been diagnosed with athlete's foot *What to do: At this time please go see dermatology. We will try another ointment. Sometimes this really does take 2-4 weeks before you start seeing in *Continue to take medications as directed *Follow up with your primary care provider in 2-3 days or call [phone] *Return to ER if you should have increasing redness swelling fever or any new, worsening or concerning symptoms Prescriptions: New clotrimazole 1 % ointment 1 applic topical BID 28 Days Qty: 56.7 0RF No Action medroxyprogesterone 10 mg tablet See Rx Instructions .ROUTE .COMPLEX Qty: 42 0RF Rx Instructions: 10 mg orally Q8h for 7 days. Then 10 mg orally daily x3 weeks Referrals: Kirsty Harris FNP-C [Primary Care Provider, Nursing] Stand Alone Forms: Patient Portal/API
[2025-01-30 11:33] VITALS: BP 146/80; PULSE 70; RESP 18; O2SAT 98
== END 2025-01-30 11:30 | disposition home or self-care (01) ==
PROVIDERS: Emergency Provider Emergency Medicine; PCP Nurse Practitioner Family
DX: B35.3 Tinea pedis (principal)
CPT/HCPCS: 99281